=== PATIENT | male | born 1980 | race Caucasian/White ===

== ENCOUNTER 2024-08-29 21:25 | Emergency (ER) | payer MEDICAID ==
[~2024-08-29] VITALS: Ht 175.3 cm; Wt 122.7 kg
[2024-08-29 21:40] VITALS: TEMP 98.5
[2024-08-29 22:39] LABS: BASOPHILS % (AUTO) 0.2 % (0.0-2.0); EOSINOPHILS % (AUTO) 0.7 % (1.0-6.0); HEMATOCRIT 44.4 % (41-53); HEMOGLOBIN 14.8 g/dL (13.5-17.5); LYMPHOCYTES # (AUTO) 1.6 K/uL (1.0-4.8); LYMPHOCYTES % (AUTO) 13.8 % (22.0-44.0); MEAN CORPUSCULAR HEMOGLOBIN 29.8 pg (26.0-34.0); MEAN CORPUSCULAR HGB CONC 33.4 G/dL (31.0-37.0); MEAN CORPUSCULAR VOLUME 89 fL (80-100); MONOCYTES # (AUTO) 0.7 K/uL (0.1-1.0); NEUTROPHILS # (AUTO) 9.1 K/uL (1.8-7.7); NEUTROPHILS % (AUTO) 79.3 % (40.0-70.0); PLATELET COUNT (AUTO) 242 K/uL (150-450); RED BLOOD CELL COUNT(AUTO) 4.98 MIL/uL (4.50-5.90); RED CELL DISTRIBUTION WIDTH 13.9 % (11.5-14.5); WHITE BLOOD COUNT (AUTO) 11.4 K/uL (4.5-11.0)
[2024-08-29 22:49] LABS: ANION GAP 4 mmol/L (8-16); CALCIUM, TOTAL 8.3 mg/dL (8.8-10.5); CARBON DIOXIDE 29 mmol/L (22-29); CHLORIDE 105 mmol/L (98-107); CREATININE 1.25 mg/dL (0.60-1.30); GLOMERULAR FILTR. RATE CALC > 60 mL/min (>60); GLUCOSE,RANDOM 97 mg/dL (70-110); POTASSIUM 3.8 mmol/L (3.5-5.1); SODIUM SERUM 138 mmol/L (136-145); UREA NITROGEN, BLOOD 15 mg/dL (7-18)
[2024-08-29] MEDS: SODIUM CHLORIDE 0.9% 1,000 ML IV ONE (22:51)
[2024-08-29 22:55] LABS: ALBUMIN 3.2 g/dL (3.4-5.0); BILIRUBIN,DIRECT 0.1 mg/dL (0.00-0.20); BILIRUBIN,TOTAL 0.3 mg/dL (0.1-1.0); TOTAL PROTEIN, SERUM 6.7 g/dL (6.4-8.2)
[2024-08-29 22:57] LABS: TROPONIN I-HIGH SENSITIVITY 4 ng/L (<76)
[2024-08-30 02:00] LABS: TROPONIN I-HIGH SENSITIVITY 5 ng/L (<76)
[2024-08-30 02:52] VITALS: BP 114/70; PULSE 75; RESP 18; O2SAT 99
== END 2024-08-30 02:54 | disposition home or self-care (01) ==
LOC: EMS 21:25
DX: R55 Syncope and collapse (principal)
CPT/HCPCS: 99285; 96360; 70450; 71045; 96361; 80048; 80076; 84484; 85025; 36415; 93005; J7030

== ENCOUNTER 2025-01-01 22:51 | Emergency (ER) | payer MEDICAID ==
[~2025-01-01] VITALS: Ht 175.3 cm; Wt 122.7 kg
[2025-01-01 22:52] VITALS: BP 135/84; PULSE 104; RESP 17; TEMP 97.9; O2SAT 98
[2025-01-01 23:32] LABS: PLATELET COUNT (AUTO) 251 K/uL (150-450); RED BLOOD CELL COUNT(AUTO) 4.52 MIL/uL (4.50-5.90); RED CELL DISTRIBUTION WIDTH 13.6 % (11.5-14.5); WHITE BLOOD COUNT (AUTO) 8.0 K/uL (4.5-11.0)
[2025-01-02 00:01] LABS: SODIUM SERUM 141 mmol/L (136-145)
[2025-01-02 00:03] LABS: TROPONIN I-HIGH SENSITIVITY 5 ng/L (<76)
[2025-01-02 00:07] LABS: CALCIUM, TOTAL 8.7 mg/dL (8.8-10.5); CREATININE 0.97 mg/dL (0.60-1.30); GLOMERULAR FILTR. RATE CALC > 60 mL/min (>60); UREA NITROGEN, BLOOD 16 mg/dL (7-18)
[2025-01-02 00:13] LABS: GLUCOSE,RANDOM 97 mg/dL (70-110)
[2025-01-02] MEDS ORDERED: HYDR25TA2 PO (01:33)
== END 2025-01-02 02:09 | disposition home or self-care (01) ==
LOC: EMS 22:53
DX: M25.474 Effusion, right foot (principal); M25.475 Effusion, left foot; F17.210 Nicotine dependence, cigarettes, uncomplicated; Z79.899 Other long term (current) drug therapy
CPT/HCPCS: 71045; 80048; 83880; 84484; 85025; 93005; 99285; 36415-L1; 36415-TC